=== PATIENT | female | born 1960 | race Caucasian/White ===

== ENCOUNTER → 2017-05-27 16:38 | Outpatient (CLI) | payer MEDICAID ==
[~2017-05-27 16:38] MED LIST: ZOCOR20 MG PO
[2017-08-09 14:01] VITALS: BMI 31.9
== END | disposition home or self-care (01) ==
LOC: D.MAMMO 16:00
DX: Z12.31 Encounter for screening mammogram for malignant neoplasm of breast (principal)

== ENCOUNTER → 2017-07-23 07:26 | Outpatient (CLI) | payer BC ==
[2017-08-09 14:01] VITALS: BMI 31.9
== END | disposition home or self-care (01) ==
LOC: D.RAD 07:26
DX: K21.9 Gastro-esophageal reflux disease without esophagitis (principal); R13.10 Dysphagia, unspecified

== ENCOUNTER 2017-08-06 20:59 | Inpatient (IN) | payer BC ==
[~2017-08-06] VITALS: Ht 170.2 cm; Wt 92.5 kg
[2017-08-06 22:36] LABS: BASOPHILS 0.2 % (0-2); EOSINOPHILS 0.6 % (0-7); HEMATOCRIT 37.9 % (36.0-48.0); HEMOGLOBIN 13.1 g/dL (12-16); IMMATURE GRANULOCYTES 0.2 % (0-5); LYMPHOCYTES 13.7 % (15-50); MCH 29.4 pg (26.0-34.0); MCHC 34.6 g/dL (31.0-37.0); MEAN PLATELET VOLUME 8.5 fL (7.4-10.4); MONOCYTES 4.1 % (2-11); NEUTROPHILS 81.2 % (40-80); PLATELET COUNT 188 10x3/uL (130-400); RBC 4.46 10x6/uL (4.00-5.40); RDW 12.9 % (11.5-14.5); WBC 10.7 10x3/uL (4.8-10.8)
[2017-08-06 23:05] LABS: ALBUMIN 4.2 g/dL (3.4-5.0); ANION GAP 14.9 mmol/L (8-16); BILIRUBIN - TOTAL 0.34 mg/dL (0.2-1.3); CALCIUM 9.4 mg/dL (8.5-10.1); CARBON DIOXIDE 27.1 mmol/L (21.0-32.0); CREATININE - SERUM 0.9 mg/dL (0.6-1.3); PROTEIN - SERUM 7.8 g/dL (6.4-8.2)
[2017-08-07] MEDS ORDERED: ZOCOR20 MG PO (03:46)
[2017-08-07 03:51] VITALS: BP 149/89; BMI 31.8
[2017-08-07 04:40] VITALS: BP 149/89
[2017-08-07 07:20] LABS: HEMATOCRIT 32.8 % (36.0-48.0); HEMOGLOBIN 11.1 g/dL (12-16)
[2017-08-07 08:21] VITALS: BP 118/71
[2017-08-07 12:25] VITALS: BP 127/67
[2017-08-07 14:49] LABS: HEMATOCRIT 30.5 % (36.0-48.0); HEMOGLOBIN 10.4 g/dL (12-16)
[2017-08-07 15:45] VITALS: BP 138/71
[2017-08-07 19:00] VITALS: BP 148/75
[2017-08-08] VITALS: BP 160/79
[2017-08-08 00:26] LABS: HEMATOCRIT 30.7 % (36.0-48.0); HEMOGLOBIN 10.3 g/dL (12-16)
[2017-08-08 04:00] VITALS: BP 130/73
[2017-08-08 06:49] LABS: BASOPHILS 0.4 % (0-2); EOSINOPHILS 2.1 % (0-7); HEMATOCRIT 30.8 % (36.0-48.0); HEMOGLOBIN 10.6 g/dL (12-16); IMMATURE GRANULOCYTES 0.2 % (0-5); LYMPHOCYTES 27.3 % (15-50); MCH 29.8 pg (26.0-34.0); MCHC 34.4 g/dL (31.0-37.0); MCV 86.5 fL (80.0-100.0); MEAN PLATELET VOLUME 9.8 fL (7.4-10.4); MONOCYTES 5.5 % (2-11); NEUTROPHILS 64.5 % (40-80); PLATELET COUNT 154 10x3/uL (130-400); RDW 13.4 % (11.5-14.5)
[2017-08-08 06:50] LABS: RBC 3.56 10x6/uL (4.00-5.40); WBC 5.3 10x3/uL (4.8-10.8)
[2017-08-08 07:07] LABS: INR 1.11 (0.85-1.17); PROTIME 13.9 SECONDS (11.6-15.0)
[2017-08-08 07:08] LABS: APTT 28.4 SECONDS (22.8-39.4)
[2017-08-08 07:09] LABS: ALBUMIN 3.2 g/dL (3.4-5.0); ALKALINE PHOSPHATASE 64 U/L (46-116); ALT (SGPT) 19 U/L (10-68); CALC OSMOLALITY 284 mosm/kg (275-300); CALCIUM 8.2 mg/dL (8.5-10.1); CARBON DIOXIDE 25.3 mmol/L (21.0-32.0); CHLORIDE - SERUM 110 mmol/L (98-107); CREATININE - SERUM 0.7 mg/dL (0.6-1.3); GLUCOSE 102 mg/dL (74-106); POTASSIUM - SERUM 3.7 mmol/L (3.5-5.1); SODIUM 144 mmol/L (136-145); UREA NITROGEN 6 mg/dL (7-18); eGFR NON AFRICAN AMERICAN > 90 mL/min (90-120)
[2017-08-08 08:21] VITALS: BP 137/77
[2017-08-08 12:06] VITALS: BP 140/67
[2017-08-08 16:12] VITALS: BP 142/70
[2017-08-08 21:26] VITALS: BP 143/78
[2017-08-09 01:03] VITALS: BP 125/67
[2017-08-09 04:54] VITALS: BP 125/64
[2017-08-09 06:04] LABS: BASOPHILS 0.3 % (0-2); EOSINOPHILS 2.5 % (0-7); HEMATOCRIT 30.4 % (36.0-48.0); IMMATURE GRANULOCYTES 0.3 % (0-5); LYMPHOCYTES 28.9 % (15-50); MCH 28.3 pg (26.0-34.0); MCHC 32.9 g/dL (31.0-37.0); MCV 86.1 fL (80.0-100.0); MEAN PLATELET VOLUME 8.5 fL (7.4-10.4); MONOCYTES 9.8 % (2-11); NEUTROPHILS 58.2 % (40-80); PLATELET COUNT 123 10x3/uL (130-400); RBC 3.53 10x6/uL (4.00-5.40); RDW 12.9 % (11.5-14.5); WBC 3.6 10x3/uL (4.8-10.8)
[2017-08-09 06:44] LABS: ALBUMIN 3.1 g/dL (3.4-5.0); ALKALINE PHOSPHATASE 63 U/L (46-116); ALT (SGPT) 17 U/L (10-68); CALCIUM 8.1 mg/dL (8.5-10.1); CARBON DIOXIDE 27.4 mmol/L (21.0-32.0); CHLORIDE - SERUM 109 mmol/L (98-107); CREATININE - SERUM 0.7 mg/dL (0.6-1.3); GLUCOSE 99 mg/dL (74-106); POTASSIUM - SERUM 3.5 mmol/L (3.5-5.1); PROTEIN - SERUM 5.9 g/dL (6.4-8.2); SODIUM 144 mmol/L (136-145); eGFR NON AFRICAN AMERICAN > 90 mL/min (90-120)
[2017-08-09 06:48] LABS: CALC OSMOLALITY 283 mosm/kg (275-300); UREA NITROGEN 4 mg/dL (7-18)
[2017-08-09 08:01] VITALS: BP 140/69
[2017-08-09 11:26] VITALS: BP 122/64
[2017-08-09 14:01] VITALS: Ht 170.2 cm; Wt 92.5 kg
[2017-08-09 15:41] VITALS: BP 115/62
== END 2017-08-09 19:48 | disposition home or self-care (01) | DRG 394 ==
LOC: D.ER 20:59 → D.M2 08-07 02:33
PROVIDERS: Anesthesiology; Emergency Medicine; Family Medicine; Internal Medicine Gastroenterology
PROC: 0DJD8ZZ Inspection of Lower Intestinal Tract, Via Natural or Artificial Opening Endoscopic (ICD-10-PCS; principal; 2017-08-08 10:00)
PROC: 0DBK8ZZ Excision of Ascending Colon, Via Natural or Artificial Opening Endoscopic (ICD-10-PCS; 2017-08-09)
DX: K64.8 Other hemorrhoids (principal); D62 Acute posthemorrhagic anemia; K63.5 Polyp of colon; K57.90 Diverticulosis of intestine, part unspecified, without perforation or abscess without bleeding; K21.9 Gastro-esophageal reflux disease without esophagitis; E78.5 Hyperlipidemia, unspecified; I10 Essential (primary) hypertension

== ENCOUNTER → 2017-08-17 09:22 | Outpatient (CLI) | payer BC ==
[2017-08-09 14:01] VITALS: BMI 31.9
[2017-08-17 09:42] LABS: BASOPHILS 0.4 % (0-2); EOSINOPHILS 2.8 % (0-7); HEMATOCRIT 36.4 % (36.0-48.0); HEMOGLOBIN 12.3 g/dL (12-16); IMMATURE GRANULOCYTES 0.2 % (0-5); LYMPHOCYTES 27.1 % (15-50); MCH 28.9 pg (26.0-34.0); MCHC 33.8 g/dL (31.0-37.0); MCV 85.6 fL (80.0-100.0); MEAN PLATELET VOLUME 8.1 fL (7.4-10.4); MONOCYTES 5.9 % (2-11); NEUTROPHILS 63.6 % (40-80); RBC 4.25 10x6/uL (4.00-5.40); RDW 13.2 % (11.5-14.5)
[2017-08-17 09:44] LABS: PLATELET COUNT 169 10x3/uL (130-400)
== END | disposition home or self-care (01) ==
LOC: D.LAB 08:15
PROVIDERS: Internal Medicine Gastroenterology
DX: K92.2 Gastrointestinal hemorrhage, unspecified (principal)

== ENCOUNTER 2019-05-10 11:00 | Outpatient (CLI) | payer BC ==
[2017-08-09 14:01] VITALS: BMI 31.9
== END 2019-05-10 11:30 | disposition home or self-care (01) ==
LOC: D.MAMMO 11:00
PROVIDERS: ATTEND Family Medicine
DX: Z12.31 Encounter for screening mammogram for malignant neoplasm of breast (principal); E04.9 Nontoxic goiter, unspecified

== ENCOUNTER → 2019-05-23 09:23 | Outpatient (CLI) | payer BC ==
[2017-08-09 14:01] VITALS: BMI 31.9
== END | disposition home or self-care (01) ==
LOC: D.US 09:23
PROVIDERS: ATTEND Family Medicine
DX: E04.1 Nontoxic single thyroid nodule (principal)

== ENCOUNTER → 2019-06-28 08:45 | Outpatient (CLI) | payer BC ==
[2017-08-09 14:01] VITALS: BMI 31.9
== END | disposition home or self-care (01) ==
LOC: D.US 06-19 09:00
PROVIDERS: ATTEND Family Medicine
DX: E04.1 Nontoxic single thyroid nodule (principal)